=== PATIENT | female | born 1960 | race Caucasian/White ===

== ENCOUNTER 2019-04-28 13:15 | Inpatient (IN) | payer MEDICAID, OTHER ==
[2019-04-28] VITALS (10 sets, daily range): BP systolic 112–139; BP diastolic 46–78
[~2019-04-28] VITALS: Ht 170.2 cm; Wt 88.9 kg
[2019-04-28 14:22] LABS: CLARITY,URINE SLIGHTLY CLOUDY (Clear); COLOR,URINE YELLOW (Yellow); GLUCOSE, URINE NEGATIVE (Neg); KETONES,URINE NEGATIVE (Neg); LEUKOCYTE ESTERASE ,URINE LARGE (Neg); NITRITES, URINE NEGATIVE (Neg); OCCULT BLOOD,URINE NEGATIVE (Neg); PROTEIN,URINE TRACE mg/dl (Neg)
[2019-04-28 14:24] LABS: BASOPHILS # (AUTO) 0.1 X10'3 (0-0.2); MEAN CORPUSCULAR VOLUME 60.6 FL (78-98); MONOCYTES # (AUTO) 0.6 X10'3 (0-0.9); MONOCYTES % (AUTO) 5.3 % (2-12); WHITE BLOOD COUNT 11.5 X10'3 (4.5-11.0)
[2019-04-28 14:26] LABS: BASOPHILS % (AUTO) 0.6 % (0-1); EOSINOPHILS # (AUTO) 0.1 X10'3 (0-0.9); EOSINOPHILS % (AUTO) 0.5 % (0-6); LYMPHOCYTES % (AUTO) 17.6 % (21-51); MEAN CORPUSCULAR HEMOGLOBIN 15.4 PG (27.0-31.0); MEAN CORPUSCULAR HGB CONC 25.5 g/dL (33.0-36.5); MEAN PLATELET VOLUME 7.3 FL (7.4-10.4); NEUTROPHILS # (AUTO) 8.7 X10'3 (1.8-7.7); PLATELET COUNT 621 X10'3 (140-440); RED BLOOD COUNT 2.62 X10'6 (4.20-5.60)
[2019-04-28 14:30] LABS: HEMATOCRIT 15.9 % (35.0-45.0)
[2019-04-28 14:31] LABS: UA COLLECTION TYPE CLN CATCH MIDSTREAM
[2019-04-28 14:33] LABS: WBC,URINE 50-100 /HPF (0-4)
[2019-04-28 14:34] LABS: BACTERIA,URINE 3+ /HPF (Neg); MUCUS STRANDS FEW /LPF (Neg); RBC,URINE NONE SEEN /HPF (0-2); SQUAMOUS EPITHELIAL CELL,UR MANY /LPF (FEW); WBC CLUMPS,URINE MANY /HPF (NEGATIVE)
[2019-04-28 14:35] LABS: ALANINE AMINOTRANSFERASE 14 U/L (12-78); ALBUMIN 2.4 G/DL (3.4-5.0); ALBUMIN/GLOBULIN RATIO 0.6 (1.1-1.5); ALKALINE PHOSPHATASE 96 IU/L (46-116); ANION GAP 14 (8-16); ASPARTATE AMINO TRANSFERASE 11 U/L (10-37); BILIRUBIN,TOTAL 0.5 MG/DL (0.1-1.0); BLOOD UREA NITROGEN 9 MG/DL (7-18); CALCIUM 8.4 MG/DL (8.5-10.1); CHLORIDE 105 MMOL/L (99-107); CREATININE 1.51 MG/DL (0.40-0.90); GLUCOSE 115 MG/DL (70-104); POTASSIUM 2.8 MMOL/L (3.5-5.1); SODIUM 140 MMOL/L (135-145); TOTAL CARBON DIOXIDE 20.6 MMOL/L (24-32); TOTAL PROTEIN 6.6 G/DL (6.4-8.2); eGFR 35 ML/MIN
[2019-04-28 15:07] LABS: ANISOCYTOSIS 3+; HYPOCHROMASIA 3+; LARGE PLATELETS FEW; MICROCYTOSIS 2+; PLATELET ESTIMATE INCREASED
[2019-04-28 15:08] LABS: ELLIPTOCYTES FEW
[2019-04-28 15:09] LABS: POLYCHROMASIA FEW; STOMATOCYTES 5
[2019-04-28] MEDS ORDERED: potassium Cl 20 mEq SR tablet PO ONE (15:35)
[2019-04-28] MEDS ORDERED: potassium Cl 10 mEq/100mL bag IV ONE (15:35)
[2019-04-28] MEDS: normal saline 1000ml 1,000 ML IV SCH ×2 (17:04→21:19)
[2019-04-28] MEDS ORDERED: magnesium 2GM in 50ml NS 50 ML IV PRN (17:05)
[2019-04-28] MEDS ORDERED: ondansetron/PF 4mg/2ml inj IV PRN (17:05)
[2019-04-28] MEDS ORDERED: magnesium Cl slow-release 64mg tablet PO PRN (17:05)
[2019-04-28] MEDS ORDERED: potassium Cl 20 mEq SR tablet PO PRN (17:05)
[2019-04-28] MEDS ORDERED: potassium CL 10mEq/100ml bag 100 ML IV PRN ×2 (17:05)
[2019-04-28] MEDS ORDERED: magnesium 4gm in 100ml NS 100 ML IV PRN (17:05)
[2019-04-28] MEDS ORDERED: NO HOME MEDS (17:23)
[2019-04-28 18:03] LABS: % IRON SATURATION 3 % (11-46); IRON 9 UG/DL (49-151); TOTAL IRON BINDING CAPACITY 316 UG/DL (259-388)
--- NOTE | 2019-04-28 20:29 | NUR ---
recieved report from Pritesh CORTEZ in the ER
--- NOTE | 2019-04-28 20:50 | NUR ---
pt recieved on unit via francisco j, with all belongings, VS stable, tele put on, pt oriented to room
[2019-04-28 21:06] LABS: BASOPHILS # (AUTO) 0.1 X10'3 (0-0.2); BASOPHILS % (AUTO) 0.9 % (0-1); EOSINOPHILS # (AUTO) 0.1 X10'3 (0-0.9); EOSINOPHILS % (AUTO) 0.6 % (0-6); LYMPHOCYTES # (AUTO) 1.6 X10'3 (1.1-4.8); LYMPHOCYTES % (AUTO) 16.1 % (21-51); MEAN CORPUSCULAR HEMOGLOBIN 18.2 PG (27.0-31.0); MEAN CORPUSCULAR HGB CONC 27.7 g/dL (33.0-36.5); MEAN CORPUSCULAR VOLUME 65.7 FL (78-98); MEAN PLATELET VOLUME 8.5 FL (7.4-10.4); MONOCYTES # (AUTO) 0.5 X10'3 (0-0.9); MONOCYTES % (AUTO) 4.9 % (2-12); NEUTROPHILS # (AUTO) 7.8 X10'3 (1.8-7.7); NEUTROPHILS % (AUTO) 77.5 % (42-75); PLATELET COUNT 466 X10'3 (140-440); RED BLOOD COUNT 2.78 X10'6 (4.20-5.60); RED CELL DISTRIBUTION WIDTH 27.9 % (11.5-14.5); WHITE BLOOD COUNT 10.1 X10'3 (4.5-11.0)
[2019-04-28 21:11] LABS: HEMATOCRIT 18.3 % (35.0-45.0); HEMOGLOBIN 5.1 g/dl (12.0-16.0)
[2019-04-28 21:26] LABS: ANISOCYTOSIS 3+; MICROCYTOSIS 2+; PLATELET ESTIMATE INCREASED
[2019-04-28 21:27] LABS: HYPOCHROMASIA 3+
[2019-04-28 21:28] LABS: ELLIPTOCYTES 2+
[2019-04-29] VITALS (15 sets, daily range): BP systolic 116–139; BP diastolic 50–71
[2019-04-29 00:47] LABS: BASOPHILS % (AUTO) 0.5 % (0-1); EOSINOPHILS % (AUTO) 0.5 % (0-6); LYMPHOCYTES # (AUTO) 1.5 X10'3 (1.1-4.8); LYMPHOCYTES % (AUTO) 17.4 % (21-51); MEAN CORPUSCULAR HEMOGLOBIN 19.6 PG (27.0-31.0); MEAN CORPUSCULAR HGB CONC 29.4 g/dL (33.0-36.5); MEAN CORPUSCULAR VOLUME 66.5 FL (78-98); MEAN PLATELET VOLUME 8.4 FL (7.4-10.4); MONOCYTES # (AUTO) 0.5 X10'3 (0-0.9); MONOCYTES % (AUTO) 5.7 % (2-12); NEUTROPHILS # (AUTO) 6.5 X10'3 (1.8-7.7); NEUTROPHILS % (AUTO) 75.9 % (42-75); PLATELET COUNT 401 X10'3 (140-440); RED BLOOD COUNT 3.03 X10'6 (4.20-5.60); RED CELL DISTRIBUTION WIDTH 27.9 % (11.5-14.5); WHITE BLOOD COUNT 8.6 X10'3 (4.5-11.0)
[2019-04-29 00:52] LABS: HEMATOCRIT 20.2 % (35.0-45.0); HEMOGLOBIN 5.9 g/dl (12.0-16.0)
[2019-04-29 01:01] LABS: ANION GAP 11 (8-16); BLOOD UREA NITROGEN 7 MG/DL (7-18); BUN/CREATININE RATIO 5.8 (6.6-38.0); CALCIUM 7.5 MG/DL (8.5-10.1); CHLORIDE 110 MMOL/L (99-107); GLUCOSE 84 MG/DL (70-104); MAGNESIUM 1.8 MG/DL (1.5-2.4); SODIUM 143 MMOL/L (135-145); TOTAL CARBON DIOXIDE 21.8 MMOL/L (24-32); eGFR 46 ML/MIN
[2019-04-29 01:04] LABS: POTASSIUM 2.9 MMOL/L (3.5-5.1)
[2019-04-29] MEDS: potassium Cl 20 mEq SR tablet PO PRN ×2 (01:24→05:29)
[2019-04-29] MEDS: normal saline 1000ml 1,000 ML IV SCH ×2 (05:28→15:47)
[2019-04-29 06:05] LABS: HEMATOCRIT 23.6 % (35.0-45.0); MEAN CORPUSCULAR HEMOGLOBIN 20.4 PG (27.0-31.0); MEAN CORPUSCULAR HGB CONC 29.4 g/dL (33.0-36.5); MEAN CORPUSCULAR VOLUME 69.5 FL (78-98); MEAN PLATELET VOLUME 8.6 FL (7.4-10.4); PLATELET COUNT 422 X10'3 (140-440); RED CELL DISTRIBUTION WIDTH 27.8 % (11.5-14.5)
[2019-04-29 06:11] LABS: HEMOGLOBIN 6.9 g/dl (12.0-16.0)
--- NOTE | 2019-04-29 06:30 | NUR ---
Patient in room PCU 3015b. I have received report from Justice, DIEGO and had the opportunity to ask questions and assume patient care. Pt awake in bed, denies any needs at this time.
--- NOTE | 2019-04-29 06:38 | NUR ---
Problems reprioritized. Patient report given, questions answered & plan of care reviewed with Tawana Manley RN.
--- NOTE | 2019-04-29 06:50 | NUR ---
Called Dr. Owens regarding the critical Hgb of 6.9 and HCT of 23.6. New orders received to give 1 unit of PRBC. Will continue to monitor.
[2019-04-29] MEDS: K and/or MAG REPLACEMENT MC SCH (08:00)
[2019-04-29] MEDS ORDERED: POTASSIUM BICARB 20meq eff tab 20 MEQ TABLET.EFF PO PRN (08:39)
[2019-04-29] MEDS: POTASSIUM BICARB 20meq eff tab 20 MEQ TABLET.EFF PO PRN ×3 (09:22→20:02)
--- NOTE | 2019-04-29 10:35 | NUR ---
promotional table spacer PAGER ID: [phone] MESSAGE: Blake [id number]. Patient would like to know if she can eat? Tawana [phone]
[2019-04-29 13:36] LABS: HEMATOCRIT 27.2 % (35.0-45.0); HEMOGLOBIN 8.2 g/dl (12.0-16.0); MEAN CORPUSCULAR HEMOGLOBIN 21.5 PG (27.0-31.0); MEAN CORPUSCULAR HGB CONC 30.2 g/dL (33.0-36.5); MEAN CORPUSCULAR VOLUME 71.4 FL (78-98); MEAN PLATELET VOLUME 8.4 FL (7.4-10.4); PLATELET COUNT 396 X10'3 (140-440); RED BLOOD COUNT 3.81 X10'6 (4.20-5.60); RED CELL DISTRIBUTION WIDTH 26.9 % (11.5-14.5); WHITE BLOOD COUNT 9.7 X10'3 (4.5-11.0)
--- NOTE | 2019-04-29 16:39 | NUR ---
Malnutrition consult: Pt admit w/ severe microcytic anemia and hypokalemia per MD. Hx depression after losing son and not leaving house past 4 months per family in addition to not seeing MD past 30 years per EMR. Pt also hx meth. Remains NPO at this time receiving transfusions. CT shows large hiatal hernia w/ extensive diverticulosis recommending colonoscopy for medical f/u. Pt reported 40 pound wt loss but no time frame and currently does not meet minim malnutrition criteria w/ mild edema and no significant weakness. First pt admit and wt is also pt stated without scale weight. Will continue to monitor for diet advancement and ONS needs once PO this admit. Addendum: 04/29/19 at [address] Amended: Links added.
[2019-04-29] MEDS ORDERED: PEG 3350/Na sulf,bicarb,Cl/KCl oral sol 4 liter bottle PO ONE (17:05)
--- NOTE | 2019-04-29 18:23 | NUR ---
Problems reprioritized. Patient report given, questions answered & plan of care reviewed with Justice RN.
--- NOTE | 2019-04-29 18:24 | NUR ---
Orientee documentation: I have reviewed and agree with interventions, assessments performed and documented by Tawana Gonzales RN. Orientee Medication Administration: For this medication-pass time frame, medication were reviewed, dispensed, administered and documented per hospital policy by Tawana Gonzales RN.
--- NOTE | 2019-04-29 18:27 | NUR ---
Patient in room PCU 3015. I have received report from Tawana Manley RN and had the opportunity to ask questions and assume patient care.
[2019-04-30] VITALS (12 sets, daily range): BP systolic 100–135; BP diastolic 47–86
[2019-04-30] MEDS: normal saline 1000ml 1,000 ML IV SCH ×4 (01:10→23:45)
--- NOTE | 2019-04-30 06:36 | NUR ---
Problems reprioritized. Patient report given, questions answered & plan of care reviewed with Natasha Ivey RN.
--- NOTE | 2019-04-30 06:36 | NUR ---
Patient in room PCU 3015. I have received report from Justice RN, and had the opportunity to ask questions and assume patient care.
[2019-04-30 06:55] LABS: BASOPHILS # (AUTO) 0.1 X10'3 (0-0.2); BASOPHILS % (AUTO) 0.6 % (0-1); EOSINOPHILS # (AUTO) 0.1 X10'3 (0-0.9); EOSINOPHILS % (AUTO) 1.2 % (0-6); HEMOGLOBIN 7.7 g/dl (12.0-16.0); LYMPHOCYTES # (AUTO) 1.6 X10'3 (1.1-4.8); LYMPHOCYTES % (AUTO) 17.9 % (21-51); MEAN CORPUSCULAR HEMOGLOBIN 21.5 PG (27.0-31.0); MEAN CORPUSCULAR HGB CONC 29.6 g/dL (33.0-36.5); MEAN CORPUSCULAR VOLUME 72.5 FL (78-98); MEAN PLATELET VOLUME 8.5 FL (7.4-10.4); MONOCYTES # (AUTO) 0.6 X10'3 (0-0.9); MONOCYTES % (AUTO) 6.6 % (2-12); NEUTROPHILS # (AUTO) 6.6 X10'3 (1.8-7.7); NEUTROPHILS % (AUTO) 73.7 % (42-75); PLATELET COUNT 349 X10'3 (140-440); RED BLOOD COUNT 3.59 X10'6 (4.20-5.60); RED CELL DISTRIBUTION WIDTH 27.3 % (11.5-14.5); WHITE BLOOD COUNT 8.9 X10'3 (4.5-11.0)
[2019-04-30 07:02] LABS: ANION GAP 9 (8-16); BLOOD UREA NITROGEN 4 MG/DL (7-18); BUN/CREATININE RATIO 3.8 (6.6-38.0); CALCIUM 7.4 MG/DL (8.5-10.1); CHLORIDE 114 MMOL/L (99-107); CREATININE 1.05 MG/DL (0.40-0.90); GLUCOSE 66 MG/DL (70-104); MAGNESIUM 1.7 MG/DL (1.5-2.4); POTASSIUM 4.5 MMOL/L (3.5-5.1); SODIUM 144 MMOL/L (135-145); TOTAL CARBON DIOXIDE 20.8 MMOL/L (24-32); eGFR 53 ML/MIN
[2019-04-30] MEDS: K and/or MAG REPLACEMENT MC SCH (08:00)
[2019-04-30 08:35] LABS: ANISOCYTOSIS 3+; MICROCYTOSIS 1+; PLATELET ESTIMATE NORMAL
[2019-04-30 08:36] LABS: HYPOCHROMASIA 2+; POLYCHROMASIA 1+
[2019-04-30 08:37] LABS: ELLIPTOCYTES FEW
[2019-04-30 08:38] LABS: POIKILOCYTOSIS 1+; TEAR DROP CELLS FEW
[2019-04-30] MEDS ORDERED: MIDAZolam 5mg/5ml vial ONE (11:31)
[2019-04-30] MEDS ORDERED: LIDOcaine Viscous 15ml cup ONE (11:31)
[2019-04-30] MEDS ORDERED: fentaNYL/PF 50MCG/1 ML 2ML syringe ONE (11:31)
--- NOTE | 2019-04-30 15:29 | NUR ---
Pt returned to unit at this time in stable condition. VS assessed, stable, no signs of distress. Report received from Will continue to monitor. Addendum: 04/30/19 at 1532 by Sudha Lutz RN Per request, pt's daughter notified via phone that patient has returned to unit.
[2019-04-30] MEDS: pantoprazole 40mg Tablet.DR PO SCH (17:40)
--- NOTE | 2019-04-30 18:21 | NUR ---
Patient in room PCU 3015. I have received report from Natasha Ivey and had the opportunity to ask questions and assume patient care.
--- NOTE | 2019-04-30 18:24 | NUR ---
Patient in room PCU 3015. I have received report from Natsaha Vines RN and had the opportunity to ask questions and assume patient care.
--- NOTE | 2019-04-30 18:35 | NUR ---
Problems reprioritized. Patient report given, questions answered & plan of care reviewed with Justice RN .
[2019-05-01 02:00] VITALS: BP 120/80
[2019-05-01 05:20] LABS: BASOPHILS # (AUTO) 0.1 X10'3 (0-0.2); BASOPHILS % (AUTO) 0.8 % (0-1); EOSINOPHILS # (AUTO) 0.1 X10'3 (0-0.9); EOSINOPHILS % (AUTO) 1.8 % (0-6); HEMATOCRIT 24.7 % (35.0-45.0); HEMOGLOBIN 7.4 g/dl (12.0-16.0); LYMPHOCYTES # (AUTO) 1.2 X10'3 (1.1-4.8); LYMPHOCYTES % (AUTO) 15.2 % (21-51); MEAN CORPUSCULAR HEMOGLOBIN 21.6 PG (27.0-31.0); MEAN CORPUSCULAR VOLUME 72.1 FL (78-98); MEAN PLATELET VOLUME 8.3 FL (7.4-10.4); MONOCYTES # (AUTO) 0.4 X10'3 (0-0.9); MONOCYTES % (AUTO) 5.6 % (2-12); NEUTROPHILS % (AUTO) 76.6 % (42-75); PLATELET COUNT 329 X10'3 (140-440); RED BLOOD COUNT 3.42 X10'6 (4.20-5.60); WHITE BLOOD COUNT 7.8 X10'3 (4.5-11.0)
[2019-05-01 05:27] LABS: ALBUMIN 1.9 G/DL (3.4-5.0); ANION GAP 9 (8-16); BLOOD UREA NITROGEN 2 MG/DL (7-18); BUN/CREATININE RATIO 2.2 (6.6-38.0); CALCIUM 7.2 MG/DL (8.5-10.1); CHLORIDE 113 MMOL/L (99-107); GLUCOSE 78 MG/DL (70-104); MAGNESIUM 1.5 MG/DL (1.5-2.4); POTASSIUM 3.7 MMOL/L (3.5-5.1); SODIUM 144 MMOL/L (135-145); TOTAL CARBON DIOXIDE 22.3 MMOL/L (24-32); eGFR 64 ML/MIN
--- NOTE | 2019-05-01 05:37 | NUR ---
I have reviewed Claudia íRos's charting and I agree.
[2019-05-01 06:00] VITALS: BP 130/55
--- NOTE | 2019-05-01 06:15 | NUR ---
Patient in room PCU 3015. I have received report from DIEGO Rendon and had the opportunity to ask questions and assume patient care. Patient is currently resting in bed, bed locked and low, call light in reach, no acute distress, will continue to monitor.
--- NOTE | 2019-05-01 06:28 | NUR ---
Problems reprioritized. Patient report given, questions answered & plan of care reviewed with Zoie Warren RN.
--- NOTE | 2019-05-01 06:28 | NUR ---
Problems reprioritized. Patient report given, questions answered & plan of care reviewed with Zoie Madera RN.
[2019-05-01] MEDS ORDERED: ferrous sulfate ER tablet 140 MG TABLET.ER PO SCH ×2 (07:30→17:30)
[2019-05-01] MEDS: pantoprazole 40mg Tablet.DR PO SCH (07:34)
[2019-05-01] MEDS: normal saline 1000ml 1,000 ML IV SCH (07:40)
[2019-05-01] MEDS: K and/or MAG REPLACEMENT MC SCH (08:00)
[2019-05-01] MEDS ORDERED: IRON,CARBONYL (45 MG ELEMENTAL IRON) SR.TABLET PO SCH ×2 (08:18→09:04)
[2019-05-01 09:42] LABS: ANISOCYTOSIS 3+; HYPOCHROMASIA 1+; MICROCYTOSIS 1+; PLATELET ESTIMATE NORMAL
[2019-05-01 09:43] LABS: POIKILOCYTOSIS 1+; POLYCHROMASIA 2+
[2019-05-01 11:00] VITALS: BP 128/75
[2019-05-01] MEDS ORDERED: ferrous sulfate ER tablet PO (11:55)
[2019-05-01] MEDS ORDERED: PANT40TA4 PO (11:55)
--- NOTE | 2019-05-01 13:53 | NUR ---
Received orders for patient discharge, patient belongings gathered, IV removed, catheter tip intact, hemostasis achieved, telemetry removed, wrist bands removed. Patient educated on discharge medications, medications called to [facility] on [address], patient verbalized understanding of education materials. Patient taken to lobby via wheelchair by PCT where [id number] will pick her up. Stable at time of discharge.
[2019-05-05 11:41] LABS: OCCULT BLOOD STOOL NEGATIVE (Neg)
== END 2019-05-01 13:50 | disposition home or self-care (01) | DRG 241 ==
LOC: ER 13:17 → PCU 3S 20:48 → CMPBEDREQ 04-29 03:55
PROVIDERS: ADMIT Internal Medicine; ATTEND Family Medicine
PROC: 30233N1 Transfusion of Nonautologous Red Blood Cells into Peripheral Vein, Percutaneous Approach (ICD-10-PCS; 2019-04-28)
PROC: 30233N1 Transfusion of Nonautologous Red Blood Cells into Peripheral Vein, Percutaneous Approach (ICD-10-PCS; 2019-04-29)
PROC: 0DJD8ZZ Inspection of Lower Intestinal Tract, Via Natural or Artificial Opening Endoscopic (ICD-10-PCS; principal; 2019-04-30)
PROC: 0DB68ZX Excision of Stomach, Via Natural or Artificial Opening Endoscopic, Diagnostic (ICD-10-PCS; 2019-04-30)
DX: K27.9 Peptic ulcer, site unspecified, unspecified as acute or chronic, without hemorrhage or perforation (principal); N17.0 Acute kidney failure with tubular necrosis; E44.1 Mild protein-calorie malnutrition; D50.9 Iron deficiency anemia, unspecified; F15.90 Other stimulant use, unspecified, uncomplicated; E86.9 Volume depletion, unspecified; E87.6 Hypokalemia; F32.9 Major depressive disorder, single episode, unspecified; K44.9 Diaphragmatic hernia without obstruction or gangrene; K57.30 Diverticulosis of large intestine without perforation or abscess without bleeding; K22.70 Barrett's esophagus without dysplasia; Z68.30 Body mass index [BMI] 30.0-30.9, adult
CPT/HCPCS: 36415; 43239; 45378; 71045; 74176; 80048; 80053; 81001; 82272; 82948; 83540; 83550; 83735; 85025; 85027; 86885; 86900; 86901; 86920; 87081; 93005; 96365; 99152; 99153; 99285; A4620; G0378; J2250; J3010; J3480; J7030; J7040; P9016